=== PATIENT | male | born 1955 | race Caucasian/White ===

== ENCOUNTER 2016-05-03 10:31 | Day surgery (SDC) | payer BC ==
[~2016-05-03 10:31] MED LIST: LACTATED RINGERS 1,000 ML IV SCH
[2016-05-03] MEDS ORDERED: IV START KIT ONE (10:38)
[2016-05-03] MEDS ORDERED: LACTATED RINGERS 1,000 ML ONE (10:38)
[2016-05-03] MEDS ORDERED: PROPOFOL 40 ML IV ONE (12:56)
--- NOTE | 2016-05-08 10:43 | SURGPATH ---
[facility] [address] [place] [id number] Patient Name: EMY NEVILLE MR#: [id number] : 1955 Gender: M Specimen #: [id number] Collected: 05/03/2016 Received: 05/05/2016 Reported: 05/08/2016 Submitting Phys: KAREL ANTHONY Copy To Phys: ZENA SMITH [facility] Clinical History / Pre-Operative Diagnosis: HISTORY OF COLON POLYPS Specimen Source / Surgical Procedure Performed: #1-PROXIMAL TRANSVERSE COLON POLYP BIOPSY; #2-SIGMOID COLON POLYP AT 18 CM Interpretation: 1. PROXIMAL TRANSVERSE COLON, POLYP, BIOPSY: - NO PATHOLOGIC DIAGNOSIS 2. SIGMOID COLON, POLYP AT 18 CM, BIOPSY: - HYPERPLASTIC POLYP Electronically Signed Out Asif Joshi M.D. Gross Description: #1 The specimen is received in a formalin filled container labeled with the patient's name and "proximal transverse colon polyp biopsy". A single bassett biopsy is 0.4 cm. Totally embedded in cassette #1. #2 The specimen is received in a formalin filled container labeled with the patient's name and "sigmoid colon polyp at 18 cm". A polypoid pale bassett biopsy is 0.2 cm. Totally embedded in cassette #2. Lele Almaguer, PAbrahamAAbraham Microscopic Description: 1. Levels reveal colonic mucosa with a normal glandular architecture. Ulceration, acute inflammation, crypt abscesses, granulomas, hyperplasia, dysplasia and malignancy are not seen. 2. Levels reveal colonic mucosa surfaced by tubular glands with focal hyperplastic features. Adenomatous and malignant features are not present. 1: 08140 2: 20639 K63.5
== END 2016-05-03 12:19 | disposition home or self-care (01) ==
LOC: SDC 10:31
PROVIDERS: ATTEND Internal Medicine Gastroenterology
PROC: 0DBN8ZX Excision of Sigmoid Colon, Via Natural or Artificial Opening Endoscopic, Diagnostic (ICD-10-PCS; principal; 2016-05-03)
PROC: 0DBL8ZX Excision of Transverse Colon, Via Natural or Artificial Opening Endoscopic, Diagnostic (ICD-10-PCS; 2016-05-03)
DX: Z12.11 Encounter for screening for malignant neoplasm of colon (principal); K63.5 Polyp of colon; K57.30 Diverticulosis of large intestine without perforation or abscess without bleeding; Z86.010 Personal history of colon polyps; E78.5 Hyperlipidemia, unspecified; G47.33 Obstructive sleep apnea (adult) (pediatric); E55.9 Vitamin D deficiency, unspecified; Z79.82 Long term (current) use of aspirin
CPT/HCPCS: 45385; 45380; J7120